=== PATIENT | male | born 1995 | race Caucasian/White ===

== ENCOUNTER 2020-11-27 23:17 | Emergency (ER) | payer OTHER ==
[~2020-11-27] VITALS: Ht 172.7 cm; Wt 137.0 kg
[2020-11-28] MEDS ORDERED: LISINOPRIL40 MG PO (01:36)
[2020-11-28] MEDS ORDERED: AMLODIPINE BESYL5 MG PO (01:36)
== END 2020-11-28 02:31 | disposition home or self-care (01) ==
LOC: ED 23:17
DX: R20.0 Anesthesia of skin (principal); I10 Essential (primary) hypertension; J45.909 Unspecified asthma, uncomplicated; G47.30 Sleep apnea, unspecified; Z79.899 Other long term (current) drug therapy
CPT/HCPCS: 99283

== ENCOUNTER → 2020-12-26 | Emergency (ER) | payer OTHER ==
[~2020-12-26] VITALS: Ht 172.7 cm; Wt 137.0 kg
[~2020-12-26] MED LIST: AMLODIPINE BESYL5 MG PO; LISINOPRIL40 MG PO
--- OUTSIDE RECORDS SUMMARY | 2020-12-26 11:36 | XMS ---
PreManage Notification: RAY CAMACHO Security National Account Executive Events No recent Security Events currently on file CRITERIA MET - [facility] [place] - 2 Visits in 30 Days CARE PROVIDERS There are no care providers on record at this time. Sofiya has no Care Guidelines for this patient. [facility] MO[facility] NOTE: Visits indicate total known visits. ED/C VISIT TRACKING (12 MO.) [facility] COMPLAINT: - R ANKLE INJURY 11/27/2020 23:[address] [facility] [place] TYPE: Emergency COMPLAINT: - HAND NUMBNESS, SHORTNESS OF BREATH, SWEATS DIAGNOSES: - Pain in right hand - Sleep apnea, unspecified - Unspecified asthma, uncomplicated - Anesthesia of skin - Essential (primary) hypertension - Other mcc (current) drug therapy INPATIENT VISIT TRACKING (12 MO.) No inpatient visits to display in this time frame [email or web address]
== END ==
LOC: ED 11:29
DX: S82.851A Displaced trimalleolar fracture of right lower leg, initial encounter for closed fracture (principal); W22.8XXA Striking against or struck by other objects, initial encounter; I10 Essential (primary) hypertension; J45.909 Unspecified asthma, uncomplicated; G47.30 Sleep apnea, unspecified; Z79.899 Other long term (current) drug therapy
CPT/HCPCS: 27818; 73610; 99152; 99284-25; J1170; J2704

== ENCOUNTER 2022-03-24 19:30 | Emergency (ER) | payer OTHER ==
[~2022-03-24] VITALS: Ht 172.7 cm; Wt 124.0 kg
--- OUTSIDE RECORDS SUMMARY | 2022-03-24 19:36 | XMS ---
PreManage Notification: RAY CAMACHO Security Encoding Clerk Events No recent Security Events currently on file CRITERIA MET - [facility] - Has Care Guidelines CARE PROVIDERS ELIZABETH NAVARRO Emergency Medicine 12/27/2020-Current PHONE: [phone] Sofiya has no Care Guidelines for this patient. Care History Medical/Surgical 12/30/2020 [facility] Patient has follow up visit with Elizabeth Navarro on 02/01/2021 due to ED visit on 11/27/2020 for hand pain 12/27/2020 [facility] - Patient is currently established with [facility]. If patient is seen in the ED during business hours. Please contact [facility] at [facility]. Care Recommendation: If this patient has had 5 or more Emergency Department visits in the last 12 months.\T\nbsp; Patient will require education on the scope and purpose of the ED as an acute care provider not a Primary Care Provider and should not be utilized for chronic conditions.\T\nbsp; These are guidelines and the provider should exercise clinical judgment when providing care. E.D. VISIT COUNT ([address] [facility] [place] TOTAL 1 NOTE: Visits indicate total known visits. ED/UCC VISIT TRACKING (12 MO.) 03/24/2022 19:31 [facility] [place] TYPE: Emergency COMPLAINT: - VOMITING BLLOD ABD PAIN INPATIENT VISIT TRACKING (12 MO.) No inpatient visits to display in this time frame [email or web address]
[2022-03-24] MEDS ORDERED: VENTOLIN HFA18 GM INH (19:48)
[2022-03-24] MEDS ORDERED: ULTRAM50 MG PO (21:54)
[2022-03-24] MEDS ORDERED: ONDANSETRON ODT8 MG PO (21:54)
== END 2022-03-24 22:12 | disposition home or self-care (01) ==
LOC: ED 19:30
DX: A08.4 Viral intestinal infection, unspecified (principal); I10 Essential (primary) hypertension; J45.909 Unspecified asthma, uncomplicated; G47.30 Sleep apnea, unspecified
CPT/HCPCS: 36415; 74177; 80053; 81003; 83690; 85025; 96361; 96375; 99284-25; A9270; J2270; J2405; J7121; Q9967

== ENCOUNTER 2024-01-03 13:17 | Emergency (ER) | payer OTHER ==
[~2024-01-03] VITALS: Ht 172.7 cm; Wt 141.9 kg
[~2024-01-03 13:17] MED LIST changes: +ONDANSETRON ODT8 MG PO; +ULTRAM50 MG PO; +VENTOLIN HFA18 GM INH
[2024-01-03] MEDS ORDERED: FLUTICASONE-SA1 EAC3 (13:30)
[2024-01-03] MEDS ORDERED: BUPROPION XL300 MG PO (13:30)
[2024-01-03] MEDS ORDERED: LISINOPRIL20 MG PO (13:31)
[2024-01-03] MEDS ORDERED: HYDROXYZINE HCL25 MG PO (13:31)
[2024-01-03 13:53] LABS: BASOPHILS 0.4 % (0-2); EOSINOPHILS 6.9 % (0-6); HEMATOCRIT 44.5 % (35.0-50.0); HEMOGLOBIN 15.6 g/dL (12.0-18.0); LYMPHOCYTES 18.9 % (24-44); MCH 29.3 (27-36); MCHC 35.1 g/dl (30-36); MCV 83.6 fl (81-99); MONOCYTES 6.4 % (0-12); NEUTROPHILS 67.4 % (39-80); PLATELET COUNT 231 K/uL (140-440); RBC 5.33 M/ul (4.3-5.7); RDW 12.9 (10.5-15.0)
[2024-01-03] MEDS ORDERED: ondansetron HCL 4 MG/2 ML VIAL IV ONE (14:00)
[2024-01-03] MEDS ORDERED: PANTOPRAZOLE SODIUM 40 MG/10 ML VIAL IV ONE (14:00)
[2024-01-03 14:05] LABS: ALBUMIN 3.7 g/dL (3.4-5.0); ALBUMIN/GLOBULIN RATIO 1.06 (1.1-2.4); BILIRUBIN, TOTAL 0.3 ng/dL (0.2-1.0); BUN/CREATININE RATIO 8.64 (6.0-28.6); CALCIUM 8.6 mg/dL (8.5-10.1); CREATININE, SERUM 0.81 mg/dL (0.70-1.30); MAGNESIUM 1.9 mg/dL (1.8-2.4); PROTEIN, TOTAL 7.2 g/dL (6.4-8.2)
[2024-01-03] MEDS ORDERED: ONDANSETRON ODT8 MG PO (15:11)
[2024-01-03 15:17] LABS: BILIRUBIN, URINE NEGATIVE (negative); BLOOD/HGB, URINE NEGATIVE (Negative); KETONE, URINE NEGATIVE (Negative); LEUK ESTERASE, URINE NEGATIVE (negative); NITRITE, URINE NEGATIVE (negative)
[2024-01-03 15:23] VITALS: BP 141/76
--- NOTE | 2024-01-03 21:49 | EKG ---
[facility] [address] [facility] [place] [address] Signed Normal sinus rhythm with sinus arrhythmia Normal ECG No previous ECGs available Confirmed by Yolanda Gomez MD () on 01/03/2024 9:49:30 PM Electronically Signed By: YOLANDA GOMEZ MD 01/03/24 2149 PATIENT NAME: RAY CAMACHO Electrocardiogram DATE OF : [birth year] PHYSICIAN: YOLANDA GOMEZ MD REPORT #: [id number] REPORT IS CONFIDENTIAL AND NOT TO BE RELEASED WITHOUT AUTHORIZATION
== END 2024-01-03 15:24 | disposition home or self-care (01) ==
LOC: ED 13:17
PROVIDERS: Emergency Medicine
DX: K29.01 Acute gastritis with bleeding (principal); I10 Essential (primary) hypertension; J45.909 Unspecified asthma, uncomplicated; Z79.899 Other long term (current) drug therapy
CPT/HCPCS: 36415; 80053; 81003; 83735; 85025; 93005; 93010; 96374; 96375; 99285-25; J2405; J2470